=== PATIENT | male | born 1940 | race Caucasian/White ===

== ENCOUNTER 2017-02-07 10:57 | Emergency (ER) | payer MEDICARE, OTHER ==
[2017-02-07] MEDS ORDERED: Ketorolac 30 MG/ML SDV IVPUSH ONE (10:58)
--- NOTE | 2017-02-07 18:21 | CR ---
CLINICAL HISTORY: 76-year-old male with right hip pain. INTERPRETATION: AP pelvis/hips and AP/frog lateral right hip films confirm the presence of lower lumb ar disc disease and chronic hypertrophic arthritis of the spine. Symmetric spacing normal-appearing SI and hip joints without arthritic degenerative change. Arteriovascular calcifications in the pelvis. Gown snap foreign body. No sign of pathologic skeletal lesion, pelvic or either hip fracture/dislocation.
== END 2017-02-07 11:58 ==
LOC: DL.ED 10:57
DX: S76.011A Strain of muscle, fascia and tendon of right hip, initial encounter (principal); I10 Essential (primary) hypertension; E11.9 Type 2 diabetes mellitus without complications; Z79.82 Long term (current) use of aspirin; Z79.84 Long term (current) use of oral hypoglycemic drugs; Z79.899 Other long term (current) drug therapy; W18.49XA Other slipping, tripping and stumbling without falling, initial encounter; X50.1XXA Overexertion from prolonged static or awkward postures, initial encounter
CPT/HCPCS: 96372; 99283; J1885

== ENCOUNTER → 2017-08-22 | Day surgery (SDC) | payer MEDICARE, OTHER ==
[~2017-08-22] MED LIST: Midazolam 1 MG/ML 2 ML SDV IV ONE; Midazolam 1 MG/ML 2 ML SDV ONE; Sodium Chloride 0.9% 10 ML Syringe FLUSH PRN; fentaNYL 100 MCG/2 ML SDV IV ONE; fentaNYL 100 MCG/2 ML SDV ONE
[2017-08-22] MEDS: Dextrose 5%-0.45% NaCl 1,000 ML IV SCH (06:06)
[2017-08-22] MEDS: fentaNYL 100 MCG/2 ML SDV IV ONE ×2 (06:32→06:33)
[2017-08-22] MEDS: Midazolam 1 MG/ML 2 ML SDV IV ONE ×2 (06:33→06:34)
--- NOTE | 2017-08-22 07:27 | OR ---
DATE: 08/22/2017 PROCEDURES PERFORMED: Total colonoscopy and multiple pinch biopsies. INSTRUMENT USED: PCF-H180 AL Olympus video panendoscope. PREMEDICATIONS: Fentanyl 100 mcg intravenous, Versed 2 mg intravenous. Nasal O2 cannula. The procedure was done under pulse oximetry, BP recording, and athletic monitor. INDICATION: The patient with chronic diarrhea, unexplained and not responsive to medical measures. Colonoscopic examination is done for detection of any polypoid lesions and removal, biopsies to be obtained for any evidence of microscopic colitis, endoscopic hemostasis therapy if needed. DESCRIPTION OF PROCEDURE: Initial rectal exam was unremarkable. Rigid anoscopy was normal. The colonoscope was passed with ease up to the ileocecal area, photographs were taken of the normal-appearing cecum, identified by thin-lipped ileocecal folds, preventing further advancement of the instrument to visualize terminal ileum. No bleeding was noted from any of the visualized areas at the commencement of the examination. There was quite a bit of liquid stool material that had to be aspirated. The bowel preparation was adequate. No stricture. No vascular ectasia. No large or isolated ulcerations seen. No evidence of diffuse inflammatory bowel disease in the form of friability, contact bleeding, or ulcerations. No polyp or tumor mass identified. Probing the proximal sides of folds and flexures, using adequate distention and clearing of the stool, withdrawal of the scope was made. Multiple pinch biopsies were taken from the normal-appearing mucosa of the mid-transverse colon, mid-descending colon, and rectosigmoid and sent for any evidence of microscopic colitis. No bleeding was noted from any of the visualized areas at the completion of examination. IMPRESSION: Normal study. The patient tolerated the procedure well. [facility] /[id number]
[2017-08-22 08:37] VITALS: BP 135/52
== END | disposition home or self-care (01) ==
LOC: DL.ENDO 05:30
PROVIDERS: ATTEND Internal Medicine Gastroenterology
DX: K52.9 Noninfective gastroenteritis and colitis, unspecified (principal); I10 Essential (primary) hypertension; E11.9 Type 2 diabetes mellitus without complications; E66.09 Other obesity due to excess calories; E78.1 Pure hyperglyceridemia
CPT/HCPCS: 45380; J7042; J2250; J3010

== ENCOUNTER 2017-10-07 09:10 | Emergency (ER) | payer MEDICARE, OTHER ==
[2017-10-07 09:20] VITALS: BP 152/48
--- NOTE | 2017-10-07 09:28 | EDM.PDOC ---
ED HPI GENERAL MEDICAL PROBLEM - General Chief Complaint: Neck Problem Stated Complaint: NECK PAIN [phone] Time Seen by Provider: 10/07/17 09:28 Source of Information: Reports: Patient, RN, RN Notes Reviewed History Limitations: Reports: No Limitations - History of Present Illness INITIAL COMMENTS - FREE TEXT/NARRATIVE: Pt to ER with c/o pain to the right side of the neck that goes into the right shoulder and up the right side of the head. Patient states the pain has been coming on for the past few weeks, but has gotten worse the past few days. Patient denies any trauma or injury. He denies headache, fever, chills, CP, SOB , sore throat, cough, visual disturbance. Onset: Gradual - Related Data Allergies Allergy/AdvReac Type Severity Reaction Status Date / Time No Known Allergies Allergy Verified 10/07/17 09:21 Home Meds: Home Meds Aspirin [Sarai Chewable] 81 mg PO DAILY 03/06/13 [History] Chlorthalidone 25 mg PO DAILY 03/06/13 [History] Latanoprost 1 drop EYEBOTH BEDTIME 03/06/13 [History] Acetaminophen [Tylenol Extra Strength] 500 mg PO ASDIRECTED 05/16/14 [History] Insulin Glarg,Human.Rec.Analog [Lantus Solostar] 30 units SQ ASDIRECTED [History] Losartan [Cozaar] 50 mg PO ASDIRECTED 08/21/17 [History] Past Medical History HEENT History: Reports: Impaired Vision, Other (See Below) Cardiovascular History: Reports: High Cholesterol, Hypertension Respiratory History: Reports: Pneumonia, Recurrent Gastrointestinal History: Reports: Cholelithiasis, Chronic Diarrhea, Other (See Below) Other Gastrointestinal History: HX OF ABNORMAL LFT'S Genitourinary History: Reports: BPH Musculoskeletal History: Reports: Arthritis, Back Pain, Chronic Neurological History: Reports: None Psychiatric History: Reports: None Endocrine/Metabolic History: Reports: Diabetes, Type II, Obesity/BMI 30+, Other (See Below) Other Endocrine/Metabolic History: ELBOW FRACTURE 1968 Hematologic History: Reports: None Immunologic History: Reports: None Oncologic (Cancer) History: Reports: None Dermatologic History: Reports: None - Infectious Disease History Infectious Disease History: Reports: Chicken Pox, Measles, Mumps - Past Surgical History Head Surgeries/Procedures: Reports: None HEENT Surgical History: Reports: Cataract Surgery, Tonsillectomy Cardiovascular Surgical History: Reports: None Respiratory Surgical History: Reports: None GI Surgical History: Reports: Appendectomy Other GI Surgeries/Procedures: PATIENT DENIES REMOVAL OF APPENDIX 08/21/17 Other Male Surgeries/Procedures: ELEVATED PSA Endocrine Surgical History: Reports: None Neurological Surgical History: Reports: None Oncologic Surgical History: Reports: None Dermatological Surgical History: Reports: Other (See Below) Social & Family History - Tobacco Use Smoking Status *Q: Never Smoker - Caffeine Use Caffeine Use: Reports: Coffee Other Caffeine Use: AVERAGE OF 2-3 CUPS DAILY - Recreational Drug Use Recreational Drug Use: No ED ROS GENERAL - Review of Systems Review Of Systems: ROS reveals no pertinent complaints other than HPI. ED EXAM, UPPER BACK/NECK PAIN - Physical Exam Exam: See Below Exam Limited By: No Limitations General Appearance: Alert, WD/WN, No Apparent Distress Eye Exam: Bilateral Eye: EOMI, Normal Inspection Ears Exam: Normal External Exam, Normal Canal, Hearing Grossly Normal, Normal TMs Nose Exam: Normal Inspection Throat/Mouth Exam: Normal Inspection, Normal Voice, No Airway Compromise Head Exam: Atraumatic, Normocephalic Neck Exam: Normal Alignment, Normal Inspection, Limited Range of Motion, Muscle Spasm, Stiff Neck, Tender Lateral Nexus Criteria: No: Posterior, Midline Cervical Tenderness, Evidence of Intoxication, Altered Level of Consciousness, Focal Neurological Deficit, Painful Distraction Injuries Cardiovascular/Respiratory: Regular Rate, Rhythm, No M/R/G, Normal Peripheral Pulses, No JVD, Normal Breath Sounds, No Respiratory Distress GI/Abdominal: Normal Bowel Sounds, Soft, Non-Tender (Male) Exam: Deferred Rectal (Males) Exam: Deferred Back Exam: Normal Inspection, Full Range of Motion Extremities: Normal Inspection, Normal Range of Motion, Non-Tender, No Pedal Edema, Normal Capillary Refill Neurologic: No Motor/Sensory Deficits, Alert, Normal Mood/Affect, Oriented x 3 Psychiatric: Normal Affect, Normal Mood Skin Exam: Normal Color, Warm/Dry Lymphatic: No Adenopathy Course - Vital Signs Last Recorded V/S: Last Vital Signs Temp 98.2 F 10/07/17 09:18 Pulse 65 10/07/17 09:18 Resp 12 10/07/17 09:18 BP 152/48 H 10/07/17 09:18 Pulse Ox 100 10/07/17 09:18 Departure - Departure Time of Disposition: 09:39 Disposition: Home, Self-Care 01 Condition: Fair Clinical Impression: Muscle spasm - Discharge Information *PRESCRIPTION DRUG MONITORING PROGRAM REVIEWED*: No *COPY OF PRESCRIPTION DRUG MONITORING REPORT IN PATIENT AGATA: No Instructions: Muscle Cramps and Spasms, [id number], Heat Therapy, Easy-to- Read Forms: ED Department Discharge Additional Instructions: Heat and ice to the area as tolerated. RX: Cyclobenzaprine May use Tylenol and or Ibuprofen 600mg orally every 8 hours with food as needed for pain Follow up with your primary care facility if no improvement
== END 2017-10-07 09:48 | disposition home or self-care (01) ==
LOC: DL.ED 09:10
DX: M62.838 Other muscle spasm (principal); E11.9 Type 2 diabetes mellitus without complications; I10 Essential (primary) hypertension; E78.00 Pure hypercholesterolemia, unspecified; Z79.82 Long term (current) use of aspirin; Z79.4 Long term (current) use of insulin; Z79.899 Other long term (current) drug therapy
CPT/HCPCS: 99283

== ENCOUNTER 2021-07-04 08:24 | Emergency (ER) | payer MEDICARE, OTHER ==
[2021-07-04] MEDS ORDERED: Lactulose Soln 10 GM/15 ML 30 ML UD Cup PO ONE (13:45)
[2021-07-04] MEDS ORDERED: cefTRIAXone 2 GM in Sodium Chloride 0.9% 100 ML IV ONE (15:35)
[2021-07-04 16:44] VITALS: BP 144/47; PULSE 69
== END 2021-07-04 16:35 | disposition home or self-care (01) ==
LOC: DL.ED 08:24
DX: K59.00 Constipation, unspecified (principal); E78.00 Pure hypercholesterolemia, unspecified; I10 Essential (primary) hypertension; E11.9 Type 2 diabetes mellitus without complications; E66.9 Obesity, unspecified; Z68.27 Body mass index [BMI] 27.0-27.9, adult
CPT/HCPCS: 74018; 99283; 99283-25; A9270-GY

== ENCOUNTER 2021-07-21 08:44 | Emergency (ER) | payer MEDICARE, OTHER ==
[2021-07-21 09:09] VITALS: BP 139/50; PULSE 66
[2021-07-21 09:39] LABS: ANION GAP 11.4 mEq/L (7-13); CHLORIDE,CL 103 mmol/L (98-107); SODIUM,NA 140 mmol/L (136-145)
[2021-07-21] MEDS ORDERED: Sodium Chloride 0.9% 1,000 ML IV ONE (09:44)
== END 2021-07-21 12:35 | disposition home or self-care (01) ==
LOC: DL.ED 08:44
DX: R42 Dizziness and giddiness (principal); R14.0 Abdominal distension (gaseous); E78.00 Pure hypercholesterolemia, unspecified; I10 Essential (primary) hypertension; E11.9 Type 2 diabetes mellitus without complications; E66.9 Obesity, unspecified; Z68.28 Body mass index [BMI] 28.0-28.9, adult; Z79.82 Long term (current) use of aspirin; Z79.4 Long term (current) use of insulin
CPT/HCPCS: 36415; 70450; 71045; 74018; 80053; 81003; 83605; 84484; 85025; 85379; 85610; 87040; 93005; 93010; 96360; 99284; 99285-25; J7030

== ENCOUNTER 2021-08-02 09:42 | Emergency (ER) | payer MEDICARE, OTHER ==
[2021-08-02 09:56] VITALS: BP 132/57; PULSE 69
[2021-08-02] MEDS ORDERED: Sodium Chloride 0.9% 500 ML IV ONE (10:42)
[2021-08-02] MEDS ORDERED: Ondansetron 4 MG/2 ML SDV IVPUSH ONE (10:42)
[2021-08-02] MEDS ORDERED: Ketorolac 30 MG/ML SDV IVPUSH ONE (10:42)
[2021-08-02 11:04] LABS: ANION GAP 12.7 mEq/L (7-13); CHLORIDE,CL 102 mmol/L (98-107); ESTIMATED GFR > 60; SODIUM,NA 141 mmol/L (136-145)
[2021-08-02 11:18] LABS: AMPHETAMINES,URINE NEGATIVE (NEGATIVE); BARBITURATES,URINE NEGATIVE (NEGATIVE); BENZODIAZEPINE,URINE NEGATIVE (NEGATIVE); MDMA (ECSTASY), URINE NEGATIVE (NEGATIVE); METHADONE,URINE NEGATIVE (NEGATIVE); METHAMPHETAMINES,URINE NEGATIVE (NEGATIVE); OPIATES,URINE NEGATIVE (NEGATIVE); OXYCODONE,URINE NEGATIVE (NEGATIVE); PHENCYCLIDINE,URINE NEGATIVE (NEGATIVE); TCA,URINE NEGATIVE (NEGATIVE)
[2021-08-02 11:22] LABS: CORONAVIRUS COVID-19 NAA NEGATIVE (NEGATIVE)
[2021-08-02] MEDS ORDERED: Meclizine 12.5 MG Tab PO ONE (11:58)
== END 2021-08-02 12:49 | disposition home or self-care (01) ==
LOC: DL.ED 09:42
DX: J34.1 Cyst and mucocele of nose and nasal sinus (principal); H61.21 Impacted cerumen, right ear; R42 Dizziness and giddiness; E78.00 Pure hypercholesterolemia, unspecified; I10 Essential (primary) hypertension; N40.0 Benign prostatic hyperplasia without lower urinary tract symptoms; E11.9 Type 2 diabetes mellitus without complications; E66.9 Obesity, unspecified; Z79.82 Long term (current) use of aspirin; Z79.4 Long term (current) use of insulin; Z79.899 Other long term (current) drug therapy; Z20.822 Contact with and (suspected) exposure to COVID-19; Z68.27 Body mass index [BMI] 27.0-27.9, adult
CPT/HCPCS: 0240U; 36415; 80053; 80305-QW; 80307; 81001; 83605; 83735; 84443; 84484; 85025; 86140; 96361; 96374; 96375; 99283; 99284-25; A9270-GY; J1885; J2405; J7030

== ENCOUNTER 2022-05-30 09:48 | Emergency (ER) | payer MEDICARE, OTHER ==
[2022-05-30 10:41] VITALS: BP 97/80; PULSE 71
== END 2022-05-30 11:56 | disposition home or self-care (01) ==
LOC: DL.ED 09:48
DX: M70.62 Trochanteric bursitis, left hip (principal); M16.12 Unilateral primary osteoarthritis, left hip; I10 Essential (primary) hypertension; E78.00 Pure hypercholesterolemia, unspecified; E11.9 Type 2 diabetes mellitus without complications; E66.9 Obesity, unspecified; Z79.4 Long term (current) use of insulin; Z87.891 Personal history of nicotine dependence; Z79.82 Long term (current) use of aspirin; Z79.899 Other long term (current) drug therapy; Z68.28 Body mass index [BMI] 28.0-28.9, adult
CPT/HCPCS: 99283

== ENCOUNTER 2023-09-28 10:50 | Emergency (ER) | payer MEDICARE, OTHER ==
[2023-09-28 11:22] LABS: BASOPHILS PERCENT AUTO 0.5 % (0.0-1.0); HEMATOCRIT 39.7 % (40.0-54.0); HEMOGLOBIN 12.7 g/dL (14.0-18.0); LYMPHOCYTES PERCENT AUTO 7.8 % (20.5-50.1); MEAN CORPUSCULAR HEMOGLOBIN 29.5 pg (27.0-34.0); MEAN CORPUSCULAR VOLUME 92.3 fL (80-100); MONOCYTES PERCENT AUTO 6.8 % (2-8); NEUTROPHILS PERCENT AUTO 83.9 % (42.2-75.2); PLATELET COUNT,PLT 325 10^3/uL (150-450); WHITE BLOOD CELL COUNT,WBC 11.7 10^3/uL (5.0-10.0)
[2023-09-28 11:29] LABS: A/G RATIO 1.1; ALANINE AMINOTRANSFERASE,ALT 27 U/L (16-63); ALBUMIN 3.7 g/dL (3.4-5.0); ALKALINE PHOSPHATASE 93 U/L (46-116); ANION GAP 15.1 mEq/L (7-13); ASPARTATE AMNIOTRANSFERASE,AST 25 U/L (15-37); BLOOD UREA NITROGEN,BUN 26 mg/dL (7-18); BUN/CREATININE RATIO 23.6 (No establ ref range); C-REACTIVE PROTEIN < 0.50 ng/dL (<=0.50); CALCIUM 9.6 mg/dL (8.5-10.1); CARBON DIOXIDE,CO2 26 mmol/L (21-32); CHLORIDE,CL 103 mmol/L (98-107); EST CRCL DRUG DOSING (CG) 50.88 mL/min; ESTIMATED GFR 67 mL/min (>=60); GLUCOSE RANDOM 144 mg/dL (70-99); MAGNESIUM 2.2 mg/dL (1.8-2.4); POTASSIUM,K 4.1 mmol/L (3.5-5.1); SODIUM,NA 140 mmol/L (136-145)
[2023-09-28] MEDS: Sodium Chloride 0.9% 1,000 ML IV ONE ×2 (11:34→12:11)
[2023-09-28] MEDS: Sodium Chloride 0.9% 10 ML Syringe FLUSH PRN (11:34)
[2023-09-28 11:36] VITALS: BP 134/43; PULSE 63
[2023-09-28 12:57] LABS: APPEARANCE,URINE CLOUDY (CLEAR); BILIRUBIN,URINE NEGATIVE (NEGATIVE); COLOR,URINE YELLOW (YELLOW); GLUCOSE,URINE 500 (NEGATIVE); KETONES,URINE NEGATIVE (NEGATIVE); LEUKOCYTE ESTERASE,URINE SMALL (NEGATIVE); NITRITE,URINE NEGATIVE (NEGATIVE); OCCULT BLOOD,URINE NEGATIVE (NEGATIVE); PH,URINE 5.5 (5.0-9.0); PROTEIN,URINE NEGATIVE (NEGATIVE); UROBILINOGEN,URINE 0.2 mg/dL (0.2-1.0)
[2023-09-28 13:32] LABS: EPITHELIAL CELLS,URINE MODERATE /HPF (NOT SEEN); WBC,URINE 40-50 /HPF (0-5/HPF)
[2023-09-28 13:33] LABS: AMORPHOUS SEDIMENT,URINE FEW /HPF (NOT SEEN); BACTERIA,URINE FEW /HPF (0-FEW/HPF); MUCUS,URINE FEW /LPF (NOT SEEN)
== END 2023-09-28 14:10 | disposition home or self-care (01) ==
LOC: DL.ED 10:50
DX: R42 Dizziness and giddiness (principal); R33.9 Retention of urine, unspecified; E86.0 Dehydration; I10 Essential (primary) hypertension; E11.9 Type 2 diabetes mellitus without complications; E66.9 Obesity, unspecified; Z79.4 Long term (current) use of insulin; Z79.82 Long term (current) use of aspirin; Z79.899 Other long term (current) drug therapy; Z68.26 Body mass index [BMI] 26.0-26.9, adult
CPT/HCPCS: 36415; 51702; 80053; 81001; 83735; 84484; 85025; 86140; 87086; 93005; 96360; 96361; 99284; J7030; 93010; J3490

== ENCOUNTER 2023-09-30 23:23 | Emergency (ER) | payer MEDICARE, OTHER ==
[2023-09-30] MEDS: Sodium Chloride 0.9% 1,000 ML IV ONE (23:38)
[2023-09-30 23:41] LABS: EOSINOPHILS PERCENT AUTO 0.8 % (1.0-3.0); HEMATOCRIT 40.2 % (40.0-54.0); HEMOGLOBIN 12.9 g/dL (14.0-18.0); LYMPHOCYTES PERCENT AUTO 10.4 % (20.5-50.1); MEAN CORPUSCULAR HEMOGLOBIN 29.6 pg (27.0-34.0); MEAN CORPUSCULAR HGB CONC 32.1 g/dL (33.0-35.0); MEAN CORPUSCULAR VOLUME 92.2 fL (80-100); MONOCYTES PERCENT AUTO 7.9 % (2-8); NEUTROPHILS PERCENT AUTO 79.9 % (42.2-75.2); PLATELET COUNT,PLT 311 10^3/uL (150-450); RED BLOOD CELL COUNT 4.36 10^6/uL (4.6-6.2); WHITE BLOOD CELL COUNT,WBC 8.4 10^3/uL (5.0-10.0)
[2023-09-30 23:56] VITALS: BP 145/57; PULSE 74
[2023-10-01 00:01] LABS: A/G RATIO 1.1; ALANINE AMINOTRANSFERASE,ALT 28 U/L (16-63); ALBUMIN 3.8 g/dL (3.4-5.0); ALKALINE PHOSPHATASE 91 U/L (46-116); ANION GAP 14.8 mEq/L (7-13); ASPARTATE AMNIOTRANSFERASE,AST 24 U/L (15-37); BILIRUBIN TOTAL 0.9 mg/dL (0.2-1.0); BLOOD UREA NITROGEN,BUN 21 mg/dL (7-18); BUN/CREATININE RATIO 17.9 (No establ ref range); CALCIUM 9.5 mg/dL (8.5-10.1); CARBON DIOXIDE,CO2 26 mmol/L (21-32); CHLORIDE,CL 102 mmol/L (98-107); CREATININE 1.17 mg/dL (0.70-1.30); GLUCOSE RANDOM 218 mg/dL (70-99); POTASSIUM,K 3.8 mmol/L (3.5-5.1); PROTEIN TOTAL,TP 7.4 g/dL (6.4-8.2); SODIUM,NA 139 mmol/L (136-145)
[2023-10-01 00:02] LABS: ESTIMATED GFR 62 mL/min (>=60)
[2023-10-01] MEDS: Sodium Chloride 0.9% 1,000 ML IV ONE (00:26)
== END 2023-10-01 01:42 | disposition home or self-care (01) ==
LOC: DL.ED 23:23
DX: E86.0 Dehydration (principal); E78.00 Pure hypercholesterolemia, unspecified; I10 Essential (primary) hypertension; E11.9 Type 2 diabetes mellitus without complications; E66.9 Obesity, unspecified; Z87.891 Personal history of nicotine dependence; Z79.899 Other long term (current) drug therapy; Z79.82 Long term (current) use of aspirin; Z79.4 Long term (current) use of insulin
CPT/HCPCS: 36415; 71045; 80053; 83735; 84484; 85025; 87804; 93005; 93010; 96360; 96361; 99284; 99285-25; J7030; U0002

== ENCOUNTER 2023-10-10 20:51 | Emergency (ER) | payer MEDICARE, OTHER ==
[2023-10-10] MEDS: Lactated Ringers 1,000 ML IV SCH (21:36)
[2023-10-10 21:40] LABS: BASOPHILS PERCENT AUTO 0.6 % (0.0-1.0); EOSINOPHILS PERCENT AUTO 1.8 % (1.0-3.0); HEMATOCRIT 37.3 % (40.0-54.0); HEMOGLOBIN 11.9 g/dL (14.0-18.0); MEAN CORPUSCULAR HEMOGLOBIN 29.5 pg (27.0-34.0); MEAN CORPUSCULAR HGB CONC 31.9 g/dL (33.0-35.0); MEAN CORPUSCULAR VOLUME 92.3 fL (80-100); MONOCYTES PERCENT AUTO 8.3 % (2-8); NEUTROPHILS PERCENT AUTO 80.3 % (42.2-75.2); PLATELET COUNT,PLT 340 10^3/uL (150-450); RED BLOOD CELL COUNT 4.04 10^6/uL (4.6-6.2); WHITE BLOOD CELL COUNT,WBC 8.2 10^3/uL (5.0-10.0)
[2023-10-10 21:43] VITALS: BP 130/84; PULSE 82
[2023-10-10 22:01] LABS: ALBUMIN 3.3 g/dL (3.4-5.0); ANION GAP 11.5 mEq/L (7-13); BILIRUBIN TOTAL 0.6 mg/dL (0.2-1.0); BUN/CREATININE RATIO 25.3 (No establ ref range); CREATININE 0.99 mg/dL (0.70-1.30); EST CRCL DRUG DOSING (CG) 56.54 mL/min; POTASSIUM,K 3.5 mmol/L (3.5-5.1); PROTEIN TOTAL,TP 7.1 g/dL (6.4-8.2)
[2023-10-10 22:02] LABS: A/G RATIO 0.87
[2023-10-10 22:54] LABS: APPEARANCE,URINE CLOUDY (CLEAR); BILIRUBIN,URINE NEGATIVE (NEGATIVE); COLOR,URINE YELLOW (YELLOW); GLUCOSE,URINE 500 (NEGATIVE); KETONES,URINE NEGATIVE (NEGATIVE); LEUKOCYTE ESTERASE,URINE LARGE (NEGATIVE); NITRITE,URINE NEGATIVE (NEGATIVE); OCCULT BLOOD,URINE MODERATE (NEGATIVE); PROTEIN,URINE 30 (NEGATIVE); UROBILINOGEN,URINE 0.2 mg/dL (0.2-1.0)
[2023-10-10 23:02] LABS: BACTERIA,URINE MODERATE /HPF (0-FEW/HPF); EPITHELIAL CELLS,URINE FEW /HPF (NOT SEEN); WBC,URINE >100 /HPF (0-5/HPF)
[2023-10-10] MEDS: cefTRIAXone 2 GM Vial IVPUSH ONE (23:58)
== END 2023-10-11 00:29 | disposition home or self-care (01) ==
LOC: DL.ED 20:51
DX: N39.0 Urinary tract infection, site not specified (principal); E11.65 Type 2 diabetes mellitus with hyperglycemia; N12 Tubulo-interstitial nephritis, not specified as acute or chronic; I10 Essential (primary) hypertension; E78.00 Pure hypercholesterolemia, unspecified; Z79.4 Long term (current) use of insulin; Z79.899 Other long term (current) drug therapy; Z87.891 Personal history of nicotine dependence; Z79.82 Long term (current) use of aspirin
CPT/HCPCS: 36415; 71045; 80053; 81001; 83735; 83880; 84484; 85025; 96361; 96374; 99284; J0696; J7120

== ENCOUNTER 2023-10-12 15:56 | Emergency (ER) | payer MEDICARE, OTHER ==
[2023-10-12 16:47] VITALS: BP 165/53; PULSE 82
[2023-10-12 17:43] LABS: BASOPHILS PERCENT AUTO 0.5 % (0.0-1.0); EOSINOPHILS PERCENT AUTO 1.1 % (1.0-3.0); HEMATOCRIT 37.5 % (40.0-54.0); HEMOGLOBIN 11.8 g/dL (14.0-18.0); LYMPHOCYTES PERCENT AUTO 5.9 % (20.5-50.1); MEAN CORPUSCULAR HEMOGLOBIN 29.1 pg (27.0-34.0); MEAN CORPUSCULAR HGB CONC 31.5 g/dL (33.0-35.0); MEAN CORPUSCULAR VOLUME 92.6 fL (80-100); MONOCYTES PERCENT AUTO 8.1 % (2-8); NEUTROPHILS PERCENT AUTO 84.4 % (42.2-75.2); PLATELET COUNT,PLT 362 10^3/uL (150-450); RED BLOOD CELL COUNT 4.05 10^6/uL (4.6-6.2); WHITE BLOOD CELL COUNT,WBC 10.9 10^3/uL (5.0-10.0)
[2023-10-12 18:05] LABS: APPEARANCE,URINE CLOUDY (CLEAR); BILIRUBIN,URINE NEGATIVE (NEGATIVE); COLOR,URINE YELLOW (YELLOW); GLUCOSE,URINE 250 (NEGATIVE); KETONES,URINE NEGATIVE (NEGATIVE); LEUKOCYTE ESTERASE,URINE LARGE (NEGATIVE); NITRITE,URINE NEGATIVE (NEGATIVE); OCCULT BLOOD,URINE LARGE (NEGATIVE); PH,URINE 5.5 (5.0-9.0); PROTEIN,URINE 100 (NEGATIVE); UROBILINOGEN,URINE 0.2 mg/dL (0.2-1.0)
[2023-10-12 18:15] LABS: ALBUMIN 3.3 g/dL (3.4-5.0); ANION GAP 10.3 mEq/L (7-13); BILIRUBIN TOTAL 0.7 mg/dL (0.2-1.0); CALCIUM 9.6 mg/dL (8.5-10.1); CREATININE 1.15 mg/dL (0.70-1.30); EST CRCL DRUG DOSING (CG) 47.09 mL/min; POTASSIUM,K 4.3 mmol/L (3.5-5.1); PROTEIN TOTAL,TP 7.4 g/dL (6.4-8.2)
[2023-10-12 18:16] LABS: A/G RATIO 0.8
[2023-10-12 18:43] LABS: BACTERIA,URINE FEW /HPF (0-FEW/HPF); EPITHELIAL CELLS,URINE FEW /HPF (NOT SEEN); WBC,URINE PACKED /HPF (0-5/HPF)
[2023-10-12] MEDS: Cefepime 2 GM Vial IVPUSH ONE (19:43)
[2023-10-12] MEDS: Sodium Chloride 0.9% 10 ML Syringe FLUSH PRN (19:43)
[2023-10-12] MEDS: Sodium Chloride 0.9% 500 ML IV SCH (20:10)
== END 2023-10-12 20:49 | disposition home or self-care (01) ==
LOC: DL.ED 15:56
DX: N39.0 Urinary tract infection, site not specified (principal); I10 Essential (primary) hypertension; E11.9 Type 2 diabetes mellitus without complications; E66.9 Obesity, unspecified; Z79.4 Long term (current) use of insulin; Z79.82 Long term (current) use of aspirin; Z79.899 Other long term (current) drug therapy; Z68.26 Body mass index [BMI] 26.0-26.9, adult
CPT/HCPCS: 36415; 80053; 81001; 82947; 85025; 93005; 93010; 96374; 99284; 99284-25; J0692; J3490; J7040

== ENCOUNTER 2023-10-15 11:17 | Emergency (ER) | payer MEDICARE, OTHER ==
[2023-10-15 13:25] LABS: BASOPHILS PERCENT AUTO 0.7 % (0.0-1.0); EOSINOPHILS PERCENT AUTO 1.4 % (1.0-3.0); HEMATOCRIT 38.5 % (40.0-54.0); HEMOGLOBIN 12.5 g/dL (14.0-18.0); LYMPHOCYTES PERCENT AUTO 7.3 % (20.5-50.1); MEAN CORPUSCULAR HEMOGLOBIN 29.2 pg (27.0-34.0); MEAN CORPUSCULAR HGB CONC 32.5 g/dL (33.0-35.0); MONOCYTES PERCENT AUTO 11.1 % (2-8); NEUTROPHILS PERCENT AUTO 79.5 % (42.2-75.2); PLATELET COUNT,PLT 369 10^3/uL (150-450); RED BLOOD CELL COUNT 4.28 10^6/uL (4.6-6.2); WHITE BLOOD CELL COUNT,WBC 8.8 10^3/uL (5.0-10.0)
[2023-10-15 13:48] LABS: A/G RATIO 0.9; ALBUMIN 3.4 g/dL (3.4-5.0); BILIRUBIN TOTAL 0.8 mg/dL (0.2-1.0); CALCIUM 9.7 mg/dL (8.5-10.1); CREATININE 1.19 mg/dL (0.70-1.30); EST CRCL DRUG DOSING (CG) 48.56 mL/min; MAGNESIUM 1.9 mg/dL (1.8-2.4); PROTEIN TOTAL,TP 7.4 g/dL (6.4-8.2)
[2023-10-15 14:06] LABS: APPEARANCE,URINE TURBID (CLEAR); BILIRUBIN,URINE NEGATIVE (NEGATIVE); COLOR,URINE YELLOW (YELLOW); GLUCOSE,URINE 250 (NEGATIVE); KETONES,URINE NEGATIVE (NEGATIVE); LEUKOCYTE ESTERASE,URINE LARGE (NEGATIVE); NITRITE,URINE NEGATIVE (NEGATIVE); OCCULT BLOOD,URINE MODERATE (NEGATIVE); PH,URINE 5.5 (5.0-9.0); PROTEIN,URINE 100 (NEGATIVE); UROBILINOGEN,URINE 0.2 mg/dL (0.2-1.0)
[2023-10-15 14:16] VITALS: BP 136/51; PULSE 71
[2023-10-15 14:16] LABS: WBC,URINE PACKED /HPF (0-5/HPF)
[2023-10-15 14:17] LABS: BACTERIA,URINE FEW /HPF (0-FEW/HPF); EPITHELIAL CELLS,URINE FEW /HPF (NOT SEEN); MUCUS,URINE FEW /LPF (NOT SEEN)
[2023-10-15 14:18] LABS: YEAST,URINE MODERATE /HPF (NOT SEEN)
[2023-10-15] MEDS: Sodium Chloride 0.9% 500 ML IV ONE (14:27)
[2023-10-15] MEDS: cefTRIAXone 1 GM Vial IVPUSH ONE (14:32)
== END 2023-10-15 15:20 | disposition home or self-care (01) ==
LOC: DL.ED 11:17
DX: E86.0 Dehydration (principal); N39.0 Urinary tract infection, site not specified; I49.8 Other specified cardiac arrhythmias; I10 Essential (primary) hypertension; E78.00 Pure hypercholesterolemia, unspecified; E11.9 Type 2 diabetes mellitus without complications; E66.9 Obesity, unspecified; Z79.899 Other long term (current) drug therapy; Z79.4 Long term (current) use of insulin; Z79.82 Long term (current) use of aspirin; Z68.24 Body mass index [BMI] 24.0-24.9, adult
CPT/HCPCS: 36415; 70450; 80053; 81001; 82947; 83735; 84484; 85025; 87086; 93005; 93010; 96361; 96374; 99284; 99285-25; J0696; J7040

== ENCOUNTER 2023-10-17 16:58 | Emergency (ER) | payer MEDICARE, OTHER ==
[2023-10-17 17:28] VITALS: BP 113/47; PULSE 89
[2023-10-17] MEDS: Sodium Chloride 0.9% 500 ML IV SCH (17:28)
[2023-10-17 17:29] LABS: BASOPHILS PERCENT AUTO 0.5 % (0.0-1.0); EOSINOPHILS PERCENT AUTO 1.8 % (1.0-3.0); HEMATOCRIT 34.9 % (40.0-54.0); HEMOGLOBIN 11.5 g/dL (14.0-18.0); LYMPHOCYTES PERCENT AUTO 8.5 % (20.5-50.1); MEAN CORPUSCULAR HEMOGLOBIN 29.6 pg (27.0-34.0); MEAN CORPUSCULAR VOLUME 89.7 fL (80-100); MONOCYTES PERCENT AUTO 11.8 % (2-8); NEUTROPHILS PERCENT AUTO 77.4 % (42.2-75.2); PLATELET COUNT,PLT 326 10^3/uL (150-450); RED BLOOD CELL COUNT 3.89 10^6/uL (4.6-6.2); WHITE BLOOD CELL COUNT,WBC 7.3 10^3/uL (5.0-10.0)
[2023-10-17 17:52] LABS: ALBUMIN 3.1 g/dL (3.4-5.0); BILIRUBIN DIRECT 0.2 mg/dL (0.0-0.2); BILIRUBIN INDIRECT 0.4; BILIRUBIN TOTAL 0.6 mg/dL (0.2-1.0); CALCIUM 9.1 mg/dL (8.5-10.1); CREATININE 1.35 mg/dL (0.70-1.30); EST CRCL DRUG DOSING (CG) 41.46 mL/min; PROTEIN TOTAL,TP 6.9 g/dL (6.4-8.2)
[2023-10-17 17:56] LABS: A/G RATIO 0.82
== END 2023-10-17 18:51 | disposition home or self-care (01) ==
LOC: DL.ED 16:58
DX: R53.1 Weakness (principal); I10 Essential (primary) hypertension; E78.00 Pure hypercholesterolemia, unspecified; E66.9 Obesity, unspecified; E11.9 Type 2 diabetes mellitus without complications; Z79.82 Long term (current) use of aspirin; Z79.899 Other long term (current) drug therapy; Z87.891 Personal history of nicotine dependence; Z68.26 Body mass index [BMI] 26.0-26.9, adult
CPT/HCPCS: 36415; 71045; 80048; 80076; 84484; 85025; 87040; 93005; 96360; 99285-25; J7030

== ENCOUNTER 2023-10-26 20:12 | Emergency (ER) | payer MEDICARE, OTHER ==
[2023-10-26] MEDS: Lidocaine 2% Jelly 10 ML Urojet MUCMEM ONE (21:30)
[2023-10-26 22:19] VITALS: BP 144/51; PULSE 64
== END 2023-10-26 22:13 | disposition home or self-care (01) ==
LOC: DL.ED 20:12
DX: T83.011A Breakdown (mechanical) of indwelling urethral catheter, initial encounter (principal); I10 Essential (primary) hypertension; E11.9 Type 2 diabetes mellitus without complications; E66.9 Obesity, unspecified; Z87.891 Personal history of nicotine dependence; Z79.4 Long term (current) use of insulin; Z79.82 Long term (current) use of aspirin; Z79.899 Other long term (current) drug therapy; Z68.25 Body mass index [BMI] 25.0-25.9, adult
CPT/HCPCS: 51702; 51798; 99283; A9270-GY

== ENCOUNTER 2023-11-14 01:20 | Emergency (ER) | payer MEDICARE, OTHER ==
[2023-11-14] MEDS: traMADol 50 MG Tab PO ONE ×2 (01:49→05:13)
[2023-11-14 02:02] LABS: APPEARANCE,URINE SLIGHTLY CLOUDY (CLEAR); BILIRUBIN,URINE NEGATIVE (NEGATIVE); COLOR,URINE YELLOW (YELLOW); GLUCOSE,URINE 500 (NEGATIVE); KETONES,URINE NEGATIVE (NEGATIVE); LEUKOCYTE ESTERASE,URINE SMALL (NEGATIVE); NITRITE,URINE NEGATIVE (NEGATIVE); OCCULT BLOOD,URINE LARGE (NEGATIVE); PROTEIN,URINE TRACE (NEGATIVE); UROBILINOGEN,URINE 0.2 mg/dL (0.2-1.0)
[2023-11-14 02:19] VITALS: BP 133/51; PULSE 67
[2023-11-14 02:47] LABS: BACTERIA,URINE FEW /HPF (0-FEW/HPF); EPITHELIAL CELLS,URINE NOT SEEN /HPF (NOT SEEN); RBC,URINE SEMI-PACKED /HPF (0-5); WBC,URINE SEMI-PACKED /HPF (0-5/HPF); YEAST,URINE FEW /HPF (NOT SEEN)
[2023-11-14] MEDS: Cephalexin 500 MG Cap PO ONE (03:25)
== END 2023-11-14 06:06 | disposition home or self-care (01) ==
LOC: DL.ED 01:20
DX: G44.209 Tension-type headache, unspecified, not intractable (principal); N39.0 Urinary tract infection, site not specified; I10 Essential (primary) hypertension; M19.90 Unspecified osteoarthritis, unspecified site; E11.9 Type 2 diabetes mellitus without complications; E66.9 Obesity, unspecified; Z79.4 Long term (current) use of insulin; Z79.82 Long term (current) use of aspirin; Z79.899 Other long term (current) drug therapy
CPT/HCPCS: 51702; 81001; 87086; 87088; 87186; 99284; A9270-GY

== ENCOUNTER 2024-02-02 07:20 | Day surgery (SDC) | payer MEDICARE, OTHER ==
[2024-02-02] MEDS: Dextrose 5%-0.45% NaCl 1,000 ML IV SCH (07:45)
[2024-02-02] MEDS ORDERED: Midazolam 1 MG/ML 2 ML SDV ONE (08:04)
[2024-02-02] MEDS ORDERED: Midazolam 1 MG/ML 2 ML SDV IV ONE (08:04)
[2024-02-02] MEDS ORDERED: fentaNYL 100 MCG/2 ML SDV IV ONE (08:04)
[2024-02-02] MEDS ORDERED: fentaNYL 100 MCG/2 ML SDV ONE (08:04)
[2024-02-02] MEDS: fentaNYL 100 MCG/2 ML SDV IV ONE ×2 (08:51→08:57)
[2024-02-02] MEDS: Midazolam 1 MG/ML 2 ML SDV IV ONE ×2 (08:52→08:58)
[2024-02-02 10:08] VITALS: BP 136/41; PULSE 60
== END 2024-02-02 10:19 | disposition home or self-care (01) ==
LOC: DL.ENDO 07:20
PROVIDERS: ATTEND Internal Medicine Gastroenterology
DX: K57.30 Diverticulosis of large intestine without perforation or abscess without bleeding (principal); D64.9 Anemia, unspecified; R19.5 Other fecal abnormalities; E11.9 Type 2 diabetes mellitus without complications; I10 Essential (primary) hypertension; E66.01 Morbid (severe) obesity due to excess calories; Z68.27 Body mass index [BMI] 27.0-27.9, adult
CPT/HCPCS: 45378; J2250; J3010; J7799

== ENCOUNTER 2024-05-22 06:46 | Inpatient (IN) | payer MEDICARE, OTHER ==
[2024-05-22] MEDS: Sodium Chloride 0.9% 1,000 ML IV ONE (05:40)
[2024-05-22 05:52] LABS: HEMATOCRIT 34.5 % (40.0-54.0); HEMOGLOBIN 10.5 g/dL (14.0-18.0); MEAN CORPUSCULAR HEMOGLOBIN 28.2 pg (27.0-34.0); MEAN CORPUSCULAR HGB CONC 30.4 g/dL (33.0-35.0); MEAN CORPUSCULAR VOLUME 92.7 fL (80-100); PLATELET COUNT,PLT 424 10^3/uL (150-450); RED BLOOD CELL COUNT 3.72 10^6/uL (4.6-6.2)
[2024-05-22 05:54] LABS: APPEARANCE,URINE TURBID (CLEAR); BILIRUBIN,URINE NEGATIVE (NEGATIVE); COLOR,URINE YELLOW (YELLOW); GLUCOSE,URINE 500 (NEGATIVE); KETONES,URINE NEGATIVE (NEGATIVE); LEUKOCYTE ESTERASE,URINE LARGE (NEGATIVE); NITRITE,URINE NEGATIVE (NEGATIVE); OCCULT BLOOD,URINE MODERATE (NEGATIVE); PROTEIN,URINE 100 (NEGATIVE); UROBILINOGEN,URINE 0.2 mg/dL (0.2-1.0)
[2024-05-22 06:15] LABS: A/G RATIO 0.7; ALANINE AMINOTRANSFERASE,ALT 14 U/L (16-63); ALBUMIN 3.4 g/dL (3.4-5.0); ALKALINE PHOSPHATASE 106 U/L (46-116); ANION GAP 16.1 mEq/L (7-13); ASPARTATE AMNIOTRANSFERASE,AST 14 U/L (15-37); BILIRUBIN TOTAL 0.8 mg/dL (0.2-1.0); BLOOD UREA NITROGEN,BUN 38 mg/dL (7-18); BUN/CREATININE RATIO 23.8 (No establ ref range); CALCIUM 9.8 mg/dL (8.5-10.1); CARBON DIOXIDE,CO2 26 mmol/L (21-32); CHLORIDE,CL 102 mmol/L (98-107); EOSINOPHILS PERCENT MAN 1 % (1-3); GLUCOSE RANDOM 191 mg/dL (70-99); LYMPHOCYTES PERCENT MAN 3 % (20-50); MONOCYTES PERCENT MAN 3 % (2-8); POTASSIUM,K 5.1 mmol/L (3.5-5.1); PROTEIN TOTAL,TP 8.2 g/dL (6.4-8.2); SEG NEUTROPHILS PERCENT MAN 93 % (42-75); SODIUM,NA 139 mmol/L (136-145)
[2024-05-22 06:18] LABS: ESTIMATED GFR 42 mL/min (>=60)
[2024-05-22 06:19] LABS: LACTIC ACID 3.2 mmol/L (0.4-2.0)
[2024-05-22] MEDS: Acetaminophen 500 MG Tab PO ONE (06:32)
[2024-05-22] MEDS: cefTRIAXone 2 GM Vial IVPUSH ONE (06:32)
[2024-05-22] MEDS: Lactated Ringers 1,000 ML IV ONE (06:47)
[2024-05-22 07:04] LABS: BACTERIA,URINE MANY /HPF (0-FEW/HPF); EPITHELIAL CELLS,URINE NOT SEEN /HPF (NOT SEEN); RBC,URINE 50-75 /HPF (0-5); WBC,URINE >100 /HPF (0-5/HPF); YEAST,URINE MODERATE /HPF (NOT SEEN)
[2024-05-22] MEDS ORDERED: Sodium Chloride 0.9% 10 ML Syringe FLUSH PRN (07:53)
[2024-05-22] MEDS ORDERED: Glucagon,Human Recombinant 1 MG Vial IM PRN ×2 (08:04→08:05)
[2024-05-22] MEDS ORDERED: 50% Dextrose in Water 50 ML Syringe IVPUSH PRN ×2 (08:04→08:05)
[2024-05-22] MEDS: Lactated Ringers 500 ML IV ONE (08:15)
[2024-05-22] MEDS: Sodium Chloride 0.9% 1,000 ML IV SCH (09:04)
[2024-05-22] MEDS: Piperacillin/Tazobactam 4.5 GM in Sodium Chloride 0.9% 100 ML IV ONE (09:31)
[2024-05-22] MEDS: Tamsulosin 0.4 MG Cap.ER PO SCH (09:33)
[2024-05-22] MEDS: hydrALAZINE 25 MG Tab PO SCH (09:33)
[2024-05-22] MEDS: Sodium Chloride 0.9% 10 ML Syringe FLUSH SCH (09:35)
[2024-05-22] MEDS: FLUCONAZOLE IV SCH (10:16)
[2024-05-22] MEDS: SODIUM CHLORIDE IV SCH (10:16)
[2024-05-22] MEDS: Insulin Lispro 100 Units/ML 3 ML Vial SUBCUT SCH (12:01)
[2024-05-22] MEDS: Piperacillin/Tazobactam 4.5 GM in Sodium Chloride 0.9% 100 ML IV SCH (13:39)
[2024-05-22] MEDS: Heparin Sodium 5,000 Units/ML Vial SUBCUT SCH (13:40)
[2024-05-22] MEDS: Furosemide 40 MG/4 ML VIAL IVPUSH ONE (14:41)
[2024-05-22] MEDS: Acetaminophen 325 MG Tab PO PRN (21:33)
[2024-05-22] MEDS: Folic Acid 1 MG Tab PO SCH (21:33)
[2024-05-22] MEDS: Insulin Glarg,Human.Rec.Analog 100 Unit/ML 10 ML Vial SUBCUT SCH (21:35)
[2024-05-22] MEDS: Latanoprost 0.005% Ophth Soln 2.5 ML Bottle EYEBOTH SCH (21:36)
[2024-05-23 06:29] LABS: BASOPHILS PERCENT AUTO 0.8 % (0.0-1.0); EOSINOPHILS PERCENT AUTO 0.1 % (1.0-3.0); HEMATOCRIT 30.5 % (40.0-54.0); HEMOGLOBIN 9.2 g/dL (14.0-18.0); LYMPHOCYTES PERCENT AUTO 3.3 % (20.5-50.1); MEAN CORPUSCULAR HEMOGLOBIN 28.4 pg (27.0-34.0); MEAN CORPUSCULAR HGB CONC 30.2 g/dL (33.0-35.0); MEAN CORPUSCULAR VOLUME 94.1 fL (80-100); MONOCYTES PERCENT AUTO 5.7 % (2-8); NEUTROPHILS PERCENT AUTO 90.1 % (42.2-75.2); PLATELET COUNT,PLT 357 10^3/uL (150-450); RED BLOOD CELL COUNT 3.24 10^6/uL (4.6-6.2); WHITE BLOOD CELL COUNT,WBC 10.8 10^3/uL (5.0-10.0)
[2024-05-23 06:45] LABS: ANION GAP 14.1 mEq/L (7-13); CALCIUM 9.4 mg/dL (8.5-10.1); CREATININE 1.39 mg/dL (0.70-1.30); EST CRCL DRUG DOSING (CG) 40.27 mL/min; POTASSIUM,K 4.1 mmol/L (3.5-5.1)
[2024-05-23] MEDS: VANCOmycin 1.25 GM in Sodium Chloride 0.9% 250 ML IV ONE (10:52)
[2024-05-23] MEDS: Sodium Chloride 0.9% 10 ML Syringe FLUSH PRN (14:35)
[2024-05-24 06:49] LABS: HEMATOCRIT 31.4 % (40.0-54.0); HEMOGLOBIN 9.3 g/dL (14.0-18.0); MEAN CORPUSCULAR HEMOGLOBIN 28.2 pg (27.0-34.0); MEAN CORPUSCULAR HGB CONC 29.6 g/dL (33.0-35.0); MEAN CORPUSCULAR VOLUME 95.2 fL (80-100); PLATELET COUNT,PLT 341 10^3/uL (150-450); WHITE BLOOD CELL COUNT,WBC 6.7 10^3/uL (5.0-10.0)
[2024-05-24 06:51] LABS: ANION GAP 14.8 mEq/L (7-13); CALCIUM 9.4 mg/dL (8.5-10.1); CREATININE 1.56 mg/dL (0.70-1.30); EST CRCL DRUG DOSING (CG) 35.88 mL/min; POTASSIUM,K 3.8 mmol/L (3.5-5.1)
[2024-05-24 07:00] LABS: BASOPHILS PERCENT AUTO 0.6 % (0.0-1.0); EOSINOPHILS PERCENT AUTO 0.5 % (1.0-3.0); LYMPHOCYTES PERCENT AUTO 8.4 % (20.5-50.1); MONOCYTES PERCENT AUTO 7.1 % (2-8); NEUTROPHILS PERCENT AUTO 83.4 % (42.2-75.2)
[2024-05-24 07:32] LABS: BAND PERCENT MAN 7 %; EOSINOPHILS PERCENT MAN 1 % (1-3); LYMPHOCYTES PERCENT MAN 12 % (20-50); MONOCYTES PERCENT MAN 7 % (2-8); SEG NEUTROPHILS PERCENT MAN 73 % (42-75)
[2024-05-24] MEDS: Doxycycline Monohydrate 100 MG Cap PO SCH (09:23)
[2024-05-24] MEDS: Levofloxacin 250 MG Tab PO SCH (11:55)
[2024-05-24] MEDS: Loperamide 2 MG Cap PO PRN (11:55)
[2024-05-24 13:24] LABS: CORONAVIRUS COVID-19 NAA POSITIVE (NEGATIVE); INFLUENZA A NAA NEGATIVE (NEGATIVE); INFLUENZA B NAA NEGATIVE (NEGATIVE)
[2024-05-24] MEDS: Furosemide 40 MG/4 ML VIAL IVPUSH ONE (14:13)
[2024-05-24] MEDS: Piperacillin/Tazobactam 4.5 GM in Sodium Chloride 0.9% 100 ML IV SCH (17:32)
[2024-05-24] MEDS: Non-Formulary Medication 1 Each PO SCH (20:32)
[2024-05-25 06:43] LABS: BASOPHILS PERCENT AUTO 0.5 % (0.0-1.0); EOSINOPHILS PERCENT AUTO 0.4 % (1.0-3.0); HEMATOCRIT 28.6 % (40.0-54.0); HEMOGLOBIN 8.9 g/dL (14.0-18.0); LYMPHOCYTES PERCENT AUTO 7.7 % (20.5-50.1); MEAN CORPUSCULAR HGB CONC 31.1 g/dL (33.0-35.0); MEAN CORPUSCULAR VOLUME 93.2 fL (80-100); MONOCYTES PERCENT AUTO 10.3 % (2-8); NEUTROPHILS PERCENT AUTO 81.1 % (42.2-75.2); PLATELET COUNT,PLT 344 10^3/uL (150-450); RED BLOOD CELL COUNT 3.07 10^6/uL (4.6-6.2); WHITE BLOOD CELL COUNT,WBC 7.7 10^3/uL (5.0-10.0)
[2024-05-25 06:57] LABS: ANION GAP 13.7 mEq/L (7-13); CALCIUM 9.3 mg/dL (8.5-10.1); CREATININE 1.72 mg/dL (0.70-1.30); EST CRCL DRUG DOSING (CG) 32.54 mL/min; POTASSIUM,K 3.7 mmol/L (3.5-5.1)
[2024-05-25 09:49] LABS: C-REACTIVE PROTEIN 8.74 ng/dL (<=0.50)
[2024-05-26 08:30] LABS: HEMATOCRIT 28.4 % (40.0-54.0); HEMOGLOBIN 8.7 g/dL (14.0-18.0); MEAN CORPUSCULAR HEMOGLOBIN 28.6 pg (27.0-34.0); MEAN CORPUSCULAR HGB CONC 30.6 g/dL (33.0-35.0); MEAN CORPUSCULAR VOLUME 93.4 fL (80-100); PLATELET COUNT,PLT 327 10^3/uL (150-450); RED BLOOD CELL COUNT 3.04 10^6/uL (4.6-6.2); WHITE BLOOD CELL COUNT,WBC 5.1 10^3/uL (5.0-10.0)
[2024-05-26 08:40] LABS: BASOPHILS PERCENT AUTO 0.8 % (0.0-1.0); EOSINOPHILS PERCENT AUTO 2.6 % (1.0-3.0); LYMPHOCYTES PERCENT AUTO 11.5 % (20.5-50.1); MONOCYTES PERCENT AUTO 11.3 % (2-8); NEUTROPHILS PERCENT AUTO 73.8 % (42.2-75.2)
[2024-05-26 08:44] LABS: ANION GAP 14.4 mEq/L (7-13); CALCIUM 9.2 mg/dL (8.5-10.1); CREATININE 1.42 mg/dL (0.70-1.30); EST CRCL DRUG DOSING (CG) 39.42 mL/min; POTASSIUM,K 3.4 mmol/L (3.5-5.1)
[2024-05-26 09:56] LABS: BAND PERCENT MAN 4 %; EOSINOPHILS PERCENT MAN 4 % (1-3); LYMPHOCYTES PERCENT MAN 15 % (20-50); MONOCYTES PERCENT MAN 8 % (2-8); SEG NEUTROPHILS PERCENT MAN 68 % (42-75)
[2024-05-26 13:16] LABS: FOLIC ACID > 20.0 ng/mL (8.6-58.9)
[2024-05-26 13:39] LABS: PERCENT FE SATURATION 15.7 % (20.0-50.0)
[2024-05-26] MEDS: Insulin Glarg,Human.Rec.Analog 100 Unit/ML 10 ML Vial SUBCUT SCH (21:40)
[2024-05-27 06:25] LABS: HEMOGLOBIN 8.7 g/dL (14.0-18.0); MEAN CORPUSCULAR VOLUME 93.2 fL (80-100); PLATELET COUNT,PLT 316 10^3/uL (150-450); RED BLOOD CELL COUNT 3.11 10^6/uL (4.6-6.2)
[2024-05-27 06:36] LABS: BASOPHILS PERCENT AUTO 1.4 % (0.0-1.0); EOSINOPHILS PERCENT AUTO 2.8 % (1.0-3.0); LYMPHOCYTES PERCENT AUTO 12.5 % (20.5-50.1); MONOCYTES PERCENT AUTO 11.2 % (2-8); NEUTROPHILS PERCENT AUTO 72.1 % (42.2-75.2)
[2024-05-27 06:43] LABS: ANION GAP 10.5 mEq/L (7-13); CREATININE 1.28 mg/dL (0.70-1.30); EST CRCL DRUG DOSING (CG) 43.73 mL/min; POTASSIUM,K 3.5 mmol/L (3.5-5.1)
[2024-05-27 06:54] LABS: EOSINOPHILS PERCENT MAN 3 % (1-3); LYMPHOCYTES PERCENT MAN 10 % (20-50); MONOCYTES PERCENT MAN 9 % (2-8); SEG NEUTROPHILS PERCENT MAN 78 % (42-75)
[2024-05-28 06:50] LABS: ANION GAP 13.5 mEq/L (7-13); CREATININE 1.23 mg/dL (0.70-1.30); EST CRCL DRUG DOSING (CG) 45.5 mL/min; POTASSIUM,K 3.5 mmol/L (3.5-5.1)
[2024-05-28 08:43] VITALS: BP 129/90; PULSE 50
[2024-05-28] MEDS ORDERED: Dextrose 5% in Water 1,000 ML IV SCH (10:00)
[2024-05-28 15:47] LABS: ANION GAP 13.5 mEq/L (7-13); CALCIUM 8.8 mg/dL (8.5-10.1); CREATININE 1.33 mg/dL (0.70-1.30); EST CRCL DRUG DOSING (CG) 42.08 mL/min; POTASSIUM,K 3.5 mmol/L (3.5-5.1)
== END 2024-05-28 11:08 | disposition swing bed (61) | DRG 698 ==
LOC: DL.ED 06:46 → DL.MS 07:07
PROVIDERS: ADMIT Internal Medicine; ATTEND Internal Medicine
PROC: 0T2BX0Z Change Drainage Device in Bladder, External Approach (ICD-10-PCS; principal; 2024-05-22)
PROC: 3E03329 Introduction of Other Anti-infective into Peripheral Vein, Percutaneous Approach (ICD-10-PCS; 2024-05-22)
PROC: 8E0ZXY6 Isolation (ICD-10-PCS; 2024-05-24)
DX: A41.9 Sepsis, unspecified organism (principal); T83.511A Infection and inflammatory reaction due to indwelling urethral catheter, initial encounter; A41.01 Sepsis due to Methicillin susceptible Staphylococcus aureus; R65.20 Severe sepsis without septic shock; U07.1 COVID-19; I10 Essential (primary) hypertension; A41.81 Sepsis due to Enterococcus; E11.9 Type 2 diabetes mellitus without complications; A41.59 Other Gram-negative sepsis; J12.82 Pneumonia due to coronavirus disease 2019; N17.9 Acute kidney failure, unspecified; Y73.2 Prosthetic and other implants, materials and accessory gastroenterology and urology devices associated with adverse incidents; E87.20 Acidosis, unspecified; I38 Endocarditis, valve unspecified; K52.9 Noninfective gastroenteritis and colitis, unspecified; N39.0 Urinary tract infection, site not specified; H54.7 Unspecified visual loss; E78.00 Pure hypercholesterolemia, unspecified; K59.09 Other constipation; N18.9 Chronic kidney disease, unspecified; I12.9 Hypertensive chronic kidney disease with stage 1 through stage 4 chronic kidney disease, or unspecified chronic kidney disease; M19.90 Unspecified osteoarthritis, unspecified site; E11.22 Type 2 diabetes mellitus with diabetic chronic kidney disease; E66.9 Obesity, unspecified; E86.0 Dehydration; E11.39 Type 2 diabetes mellitus with other diabetic ophthalmic complication; H42 Glaucoma in diseases classified elsewhere; E53.8 Deficiency of other specified B group vitamins; D63.1 Anemia in chronic kidney disease; R33.9 Retention of urine, unspecified; N40.1 Benign prostatic hyperplasia with lower urinary tract symptoms; Y84.6 Urinary catheterization as the cause of abnormal reaction of the patient, or of later complication, without mention of misadventure at the time of the procedure; Z79.82 Long term (current) use of aspirin; Z79.84 Long term (current) use of oral hypoglycemic drugs; Z79.4 Long term (current) use of insulin; Z79.899 Other long term (current) drug therapy; Z68.23 Body mass index [BMI] 23.0-23.9, adult; Z87.81 Personal history of (healed) traumatic fracture; Z98.49 Cataract extraction status, unspecified eye; Z90.89 Acquired absence of other organs; Z98.890 Other specified postprocedural states
CPT/HCPCS: 0240U; 36415; 51700; 51702; 71045; 76770; 80048; 80053; 81001; 82272; 82607; 82746; 82947; 83540; 83550; 83605; 83880; 84145; 85025; 85651; 86140; 87040; 87077; 87086; 87088; 87186; 87428; 93306; 94010; 96361; 96374; 97161; 97530; 99285; 99223; 99232; 99233; 99239; A4320; A9270-GY; J0696; J1450; J1644; J1815-GY; J1940; J2543; J3371; J7030; J7120

== ENCOUNTER 2024-05-28 08:27 | Inpatient (IN) | payer MEDICARE, OTHER ==
[2024-05-28] MEDS ORDERED: Loperamide 2 MG Cap PO PRN (10:42)
[2024-05-28] MEDS ORDERED: Acetaminophen 325 MG Tab PO PRN (10:42)
[2024-05-28] MEDS ORDERED: Sodium Chloride 0.9% 10 ML Syringe FLUSH PRN (10:42)
[2024-05-28] MEDS: Dextrose 5% in Water 1,000 ML IV SCH ×2 (12:12→17:07)
[2024-05-28] MEDS: Heparin Sodium 5,000 Units/ML Vial SUBCUT SCH (13:58)
[2024-05-28] MEDS: Piperacillin/Tazobactam 4.5 GM in Sodium Chloride 0.9% 100 ML IV SCH (17:39)
[2024-05-28] MEDS: Ferrous Sulfate 325 MG Tab PO SCH (17:39)
[2024-05-28] MEDS: Folic Acid 1 MG Tab PO SCH (20:31)
[2024-05-28] MEDS: hydrALAZINE 25 MG Tab PO SCH (20:32)
[2024-05-28] MEDS: Sodium Chloride 0.9% 10 ML Syringe FLUSH SCH (20:33)
[2024-05-28] MEDS: Latanoprost 0.005% Ophth Soln 2.5 ML Bottle EYEBOTH SCH (20:33)
[2024-05-28] MEDS: Non-Formulary Medication 1 Each PO SCH (20:36)
[2024-05-28] MEDS ORDERED: Sodium Chloride 0.9% 10 ML Syringe FLUSH SCH (21:00)
[2024-05-29 06:25] LABS: HEMATOCRIT 29.8 % (40.0-54.0); HEMOGLOBIN 8.9 g/dL (14.0-18.0); MEAN CORPUSCULAR HEMOGLOBIN 27.9 pg (27.0-34.0); MEAN CORPUSCULAR HGB CONC 29.9 g/dL (33.0-35.0); MEAN CORPUSCULAR VOLUME 93.4 fL (80-100); PLATELET COUNT,PLT 306 10^3/uL (150-450); RED BLOOD CELL COUNT 3.19 10^6/uL (4.6-6.2); WHITE BLOOD CELL COUNT,WBC 7.2 10^3/uL (5.0-10.0)
[2024-05-29 06:28] LABS: BASOPHILS PERCENT AUTO 1.1 % (0.0-1.0); EOSINOPHILS PERCENT AUTO 3.2 % (1.0-3.0); LYMPHOCYTES PERCENT AUTO 11.7 % (20.5-50.1)
[2024-05-29 06:37] LABS: ANION GAP 12.6 mEq/L (7-13); BLOOD UREA NITROGEN,BUN 17 mg/dL (7-18); CALCIUM 8.8 mg/dL (8.5-10.1); CARBON DIOXIDE,CO2 30 mmol/L (21-32); CHLORIDE,CL 108 mmol/L (98-107); CREATININE 1.13 mg/dL (0.70-1.30); GLUCOSE RANDOM 147 mg/dL (70-99); POTASSIUM,K 3.6 mmol/L (3.5-5.1); SODIUM,NA 147 mmol/L (136-145)
[2024-05-29 06:42] LABS: ESTIMATED GFR 64 mL/min (>=60)
[2024-05-29 06:56] LABS: EOSINOPHILS PERCENT MAN 2 % (1-3); LYMPHOCYTES PERCENT MAN 12 % (20-50); MONOCYTES PERCENT MAN 5 % (2-8); SEG NEUTROPHILS PERCENT MAN 81 % (42-75)
[2024-05-29] MEDS: Dextrose 5% in Water 1,000 ML IV SCH (08:31)
[2024-05-29] MEDS: Tamsulosin 0.4 MG Cap.ER PO SCH (08:34)
[2024-05-29 14:38] LABS: ANION GAP 13.5 mEq/L (7-13); BLOOD UREA NITROGEN,BUN 19 mg/dL (7-18); CALCIUM 8.9 mg/dL (8.5-10.1); CARBON DIOXIDE,CO2 29 mmol/L (21-32); CHLORIDE,CL 105 mmol/L (98-107); CREATININE 1.23 mg/dL (0.70-1.30); ESTIMATED GFR 58 mL/min (>=60); GLUCOSE RANDOM 163 mg/dL (70-99); POTASSIUM,K 3.5 mmol/L (3.5-5.1); SODIUM,NA 144 mmol/L (136-145)
[2024-05-30 08:22] LABS: ANION GAP 12.5 mEq/L (7-13); CALCIUM 8.9 mg/dL (8.5-10.1); CREATININE 1.1 mg/dL (0.70-1.30); EST CRCL DRUG DOSING (CG) 50.88 mL/min; POTASSIUM,K 3.5 mmol/L (3.5-5.1)
[2024-05-31 06:35] LABS: ANION GAP 14.2 mEq/L (7-13); CALCIUM 8.9 mg/dL (8.5-10.1); CREATININE 1.06 mg/dL (0.70-1.30); EST CRCL DRUG DOSING (CG) 52.8 mL/min; POTASSIUM,K 3.2 mmol/L (3.5-5.1)
[2024-05-31 08:27] LABS: T4 FREE 1.25 ng/dL (0.76-1.46); TSH ULTRASENSITIVE 1.11 uIU/mL (0.36-3.74)
[2024-05-31] MEDS: Potassium Chloride 20 MEQ in Premix Bag 1 BAG IV ONE (08:32)
[2024-05-31] MEDS: Potassium Chloride 10 MEQ Tab.ER PO SCH (08:33)
[2024-05-31] MEDS: Sodium Chloride 0.9% 10 ML Syringe FLUSH PRN (08:34)
[2024-05-31] MEDS: Dextrose 5% in Water 1,000 ML IV SCH (08:48)
[2024-05-31 14:25] LABS: ANION GAP 13.8 mEq/L (7-13); CALCIUM 8.9 mg/dL (8.5-10.1); CREATININE 1.18 mg/dL (0.70-1.30); EST CRCL DRUG DOSING (CG) 47.43 mL/min; POTASSIUM,K 3.8 mmol/L (3.5-5.1)
[2024-05-31] MEDS ORDERED: 50% Dextrose in Water 50 ML Syringe IVPUSH PRN (15:54)
[2024-05-31] MEDS ORDERED: Glucagon,Human Recombinant 1 MG Vial IM PRN (15:54)
[2024-05-31] MEDS: Insulin Regular, Human 100 Units/ML 10 ML Vial IV ONE (16:22)
[2024-06-01 05:57] LABS: HEMATOCRIT 29.2 % (40.0-54.0); MEAN CORPUSCULAR HEMOGLOBIN 28.8 pg (27.0-34.0); MEAN CORPUSCULAR HGB CONC 30.8 g/dL (33.0-35.0); MEAN CORPUSCULAR VOLUME 93.6 fL (80-100); PLATELET COUNT,PLT 313 10^3/uL (150-450); RED BLOOD CELL COUNT 3.12 10^6/uL (4.6-6.2)
[2024-06-01 06:13] LABS: EOSINOPHILS PERCENT AUTO 3.1 % (1.0-3.0); LYMPHOCYTES PERCENT AUTO 9.9 % (20.5-50.1); MONOCYTES PERCENT AUTO 7.9 % (2-8); NEUTROPHILS PERCENT AUTO 78.1 % (42.2-75.2)
[2024-06-01 06:18] LABS: CALCIUM 8.8 mg/dL (8.5-10.1); CREATININE 1.02 mg/dL (0.70-1.30); EST CRCL DRUG DOSING (CG) 54.87 mL/min
[2024-06-01 07:55] LABS: EOSINOPHILS PERCENT MAN 3 % (1-3); LYMPHOCYTES PERCENT MAN 11 % (20-50); MONOCYTES PERCENT MAN 5 % (2-8); SEG NEUTROPHILS PERCENT MAN 81 % (42-75)
[2024-06-01] MEDS: Desmopressin 4 MCG/1 ML Amp SUBCUT SCH (10:02)
[2024-06-01] MEDS: Dextrose 5% in Water 1,000 ML IV SCH (14:03)
[2024-06-01 14:20] LABS: ANION GAP 16.3 mEq/L (7-13); CALCIUM 9.2 mg/dL (8.5-10.1); CREATININE 1.33 mg/dL (0.70-1.30); EST CRCL DRUG DOSING (CG) 42.08 mL/min; POTASSIUM,K 4.3 mmol/L (3.5-5.1)
[2024-06-02 10:06] LABS: ANION GAP 17.1 mEq/L (7-13); CREATININE 1.15 mg/dL (0.70-1.30); EST CRCL DRUG DOSING (CG) 48.67 mL/min; POTASSIUM,K 4.1 mmol/L (3.5-5.1)
[2024-06-02 11:02] LABS: CHOLESTEROL HDL 38 mg/dL (40-59); CHOLESTEROL LDL CALCULATED 13 mg/dL (0-100); CHOLESTEROL TOTAL 83 mg/dL (0-199); TRIGLYCERIDES 160 mg/dL (0-149)
[2024-06-02 13:01] LABS: A/G RATIO 0.57; ALBUMIN 2.5 g/dL (3.4-5.0); BILIRUBIN DIRECT 0.2 mg/dL (0.0-0.2); BILIRUBIN INDIRECT 0.3; BILIRUBIN TOTAL 0.5 mg/dL (0.2-1.0); PROTEIN TOTAL,TP 6.9 g/dL (6.4-8.2)
[2024-06-02] MEDS: Codeine/guaiFENesin 10-100 MG/5 ML Syrup 5 ML Cup PO SCH (14:10)
[2024-06-03 06:57] LABS: ANION GAP 14.7 mEq/L (7-13); CALCIUM 9.1 mg/dL (8.5-10.1); CREATININE 1.09 mg/dL (0.70-1.30); EST CRCL DRUG DOSING (CG) 51.35 mL/min; POTASSIUM,K 4.7 mmol/L (3.5-5.1)
[2024-06-03] MEDS ORDERED: Desmopressin 4 MCG/1 ML Amp SUBCUT SCH (12:00)
[2024-06-03 16:57] LABS: ANION GAP 15.4 mEq/L (7-13); CALCIUM 8.8 mg/dL (8.5-10.1); CREATININE 1.29 mg/dL (0.70-1.30); EST CRCL DRUG DOSING (CG) 43.39 mL/min; POTASSIUM,K 4.4 mmol/L (3.5-5.1)
[2024-06-04 06:50] LABS: ANION GAP 10.1 mEq/L (7-13); CALCIUM 8.8 mg/dL (8.5-10.1); CREATININE 1.12 mg/dL (0.70-1.30); EST CRCL DRUG DOSING (CG) 49.97 mL/min; POTASSIUM,K 4.1 mmol/L (3.5-5.1)
[2024-06-05 17:21] LABS: BASOPHILS PERCENT AUTO 0.9 % (0.0-1.0); EOSINOPHILS PERCENT AUTO 0.9 % (1.0-3.0); HEMATOCRIT 31.5 % (40.0-54.0); HEMOGLOBIN 9.6 g/dL (14.0-18.0); LYMPHOCYTES PERCENT AUTO 13.4 % (20.5-50.1); MEAN CORPUSCULAR HEMOGLOBIN 28.7 pg (27.0-34.0); MEAN CORPUSCULAR HGB CONC 30.5 g/dL (33.0-35.0); MONOCYTES PERCENT AUTO 6.2 % (2-8); NEUTROPHILS PERCENT AUTO 78.6 % (42.2-75.2); PLATELET COUNT,PLT 308 10^3/uL (150-450); RED BLOOD CELL COUNT 3.35 10^6/uL (4.6-6.2); WHITE BLOOD CELL COUNT,WBC 5.3 10^3/uL (5.0-10.0)
[2024-06-05 17:35] LABS: A/G RATIO 0.57; ALBUMIN 2.7 g/dL (3.4-5.0); ANION GAP 10.5 mEq/L (7-13); BILIRUBIN TOTAL 0.5 mg/dL (0.2-1.0); CALCIUM 9.4 mg/dL (8.5-10.1); EST CRCL DRUG DOSING (CG) 55.97 mL/min; MAGNESIUM 1.9 mg/dL (1.8-2.4); POTASSIUM,K 4.5 mmol/L (3.5-5.1); PROTEIN TOTAL,TP 7.4 g/dL (6.4-8.2)
[2024-06-05] MEDS: Ondansetron 4 MG Tab.DIS PO PRN (20:14)
[2024-06-05] MEDS: Scopalamine 1mg/3day Transdermal Patch TOP ONE (20:56)
[2024-06-05] MEDS: hydrOXYzine HCl 25 MG Tab PO PRN (21:01)
[2024-06-06] MEDS: Meclizine 12.5 MG Tab PO PRN (10:47)
[2024-06-06] MEDS: Ondansetron 4 MG Tab.DIS PO ONE (11:13)
[2024-06-07] MEDS: Meclizine 12.5 MG Tab PO PRN (10:02)
[2024-06-07] MEDS: Check SCOPOLAMINE Patch TRDERM ONE (22:08)
[2024-06-12 08:10] VITALS: BP 129/59; PULSE 68
== END 2024-06-12 14:15 | disposition home or self-care (01) | DRG 947 ==
LOC: DL.MS 10:43
PROVIDERS: ADMIT Internal Medicine; ATTEND Internal Medicine
DX: R53.1 Weakness (principal); A41.01 Sepsis due to Methicillin susceptible Staphylococcus aureus; J12.82 Pneumonia due to coronavirus disease 2019; U07.1 COVID-19; J18.9 Pneumonia, unspecified organism; R65.20 Severe sepsis without septic shock; N39.0 Urinary tract infection, site not specified; T83.511A Infection and inflammatory reaction due to indwelling urethral catheter, initial encounter; E87.0 Hyperosmolality and hypernatremia; N17.9 Acute kidney failure, unspecified; E78.5 Hyperlipidemia, unspecified; I12.9 Hypertensive chronic kidney disease with stage 1 through stage 4 chronic kidney disease, or unspecified chronic kidney disease; N18.32 Chronic kidney disease, stage 3b; E11.22 Type 2 diabetes mellitus with diabetic chronic kidney disease; N40.0 Benign prostatic hyperplasia without lower urinary tract symptoms; Y84.6 Urinary catheterization as the cause of abnormal reaction of the patient, or of later complication, without mention of misadventure at the time of the procedure; F32.A Depression, unspecified; H40.9 Unspecified glaucoma; E86.0 Dehydration; D63.1 Anemia in chronic kidney disease; N40.1 Benign prostatic hyperplasia with lower urinary tract symptoms; D50.9 Iron deficiency anemia, unspecified; H54.7 Unspecified visual loss; E78.00 Pure hypercholesterolemia, unspecified; F15.90 Other stimulant use, unspecified, uncomplicated; R79.89 Other specified abnormal findings of blood chemistry; E87.70 Fluid overload, unspecified; I10 Essential (primary) hypertension; K52.9 Noninfective gastroenteritis and colitis, unspecified; K59.09 Other constipation; M19.90 Unspecified osteoarthritis, unspecified site; G89.29 Other chronic pain; Z87.81 Personal history of (healed) traumatic fracture; Z79.4 Long term (current) use of insulin; Z79.899 Other long term (current) drug therapy; Z79.1 Long term (current) use of non-steroidal anti-inflammatories (NSAID); Z79.82 Long term (current) use of aspirin; Z98.49 Cataract extraction status, unspecified eye; Z90.89 Acquired absence of other organs; Z98.890 Other specified postprocedural states
CPT/HCPCS: 36415; 80048; 80053; 80061; 80076; 82947; 83735; 83930; 83935; 84300; 84439; 84443; 84484; 85025; 87428-QW; 93880; 97161-GP; 97165-GO; 97530-GO; 97530-GP; A9270-GY; J1644; J2543; J2597; J3480; J7070

== ENCOUNTER 2024-08-20 06:50 | Day surgery (SDC) | payer MEDICARE, OTHER ==
[2024-08-20] MEDS ORDERED: Lactated Ringers 250 ML IV ONE (06:51)
[2024-08-20] MEDS ORDERED: Propofol 200 MG/20 ML SDV IV ONE (06:51)
[2024-08-20] MEDS: Lactated Ringers 1,000 ML IV SCH (07:28)
[2024-08-20 09:39] VITALS: BP 132/51; PULSE 65
== END 2024-08-20 09:35 ==
LOC: DL.ENDO 06:50
PROVIDERS: ATTEND Internal Medicine Gastroenterology
DX: D50.9 Iron deficiency anemia, unspecified (principal); D13.2 Benign neoplasm of duodenum; K29.80 Duodenitis without bleeding; K29.50 Unspecified chronic gastritis without bleeding; E11.9 Type 2 diabetes mellitus without complications; E66.09 Other obesity due to excess calories; I10 Essential (primary) hypertension; Z68.26 Body mass index [BMI] 26.0-26.9, adult
CPT/HCPCS: 43239; 88305; J2003; J2704; J7120; 00731; 99100